=== PATIENT | female | born 1975 | race American Indian/Alaskan Native ===

== ENCOUNTER 2018-08-18 15:08 | Emergency (ER) | payer OTHER ==
[2018-08-18 16:10] LABS: Hematocrit 37.3 % (30.3-42.9); Hemoglobin 12.6 gm/dl (10.1-14.3); Mean Corpuscular HGB Conc 34 % (30-34); Mean Corpuscular Volume 87 fl (79-97); Platelet Count 167 K/mm3 (140-440); Red Blood Count 4.28 M/mm3 (3.65-5.03); Red Cell Distribution Width 14.4 % (13.2-15.2)
[2018-08-18 16:20] LABS: INR 0.91 (0.87-1.13)
--- NOTE | 2018-08-18 16:20 | Emergency Department Report ---
HPI - General Chief Complaint: Chest Pain Time Seen by Provider: 08/18/18 15:54 - HPI HPI: Room 1 The patient is a 42-year-old female presenting with chief complaint chest pain. Patient states today she developed substernal chest heaviness associated with shortness of breath. Patient denies nausea/vomiting or diaphoresis. Patient states she's never had a stress test or cardiac catheterization. Patient currently gets her chest heaviness a score of 0/10 Location: Chest Duration: One day Quality: Heaviness Severity: 0/10 Modifying factors: [see above] Context: [see above] Mode of transportation: [not driving] ED Past Medical Hx - Past Medical History Previous Medical History?: No - Surgical History Past Surgical History?: No - Family History Family history: no significant - Social History Smoking Status: Never Smoker Substance Use Type: None - Medications Home Medications: Home Medications Medication Instructions Recorded Confirmed Last Taken Type No Known Home Medications [No 08/18/18 08/18/18 Unknown History Reported Home Medications] ED Review of Systems ROS: Stated complaint: CHEST PAIN Other details as noted in HPI Constitutional: denies: diaphoresis Eyes: denies: eye pain ENT: denies: throat pain Respiratory: shortness of breath Cardiovascular: chest pain Endocrine: no symptoms reported Gastrointestinal: denies: nausea, vomiting Genitourinary: denies: dysuria Musculoskeletal: denies: back pain Skin: denies: lesions Neurological: denies: headache Physical Exam - Physical Exam Vital Signs: Vital Signs 08/18/18 15:36 Temperature 98.9 F Pulse Rate 84 Respiratory 16 Rate Blood Pressure 132/72 O2 Sat by Pulse 96 Oximetry Physical Exam: GENERAL: The patient is well-developed well-nourished female lying on stretcher not appearing to be in acute distress. [] HEENT: Normocephalic. Atraumatic. Extraocular motions are intact. Patient has moist mucous membranes. NECK: Supple. Trachea midline CHEST/LUNGS: Occasional end-expiratory wheeze. There is no respiratory distress noted. HEART/CARDIOVASCULAR: Regular. There is no tachycardia. There is no gallop rub or murmur. ABDOMEN: Abdomen is soft, nontender. Patient has normal bowel sounds. There is no abdominal distention. SKIN: There is no rash. There is no edema. There is no diaphoresis. NEURO: The patient is awake, alert, and oriented. The patient is cooperative. The patient has normal speech MUSCULOSKELETAL: There is no evidence of acute injury. ED Course Vital Signs 08/18/18 15:36 Temperature 98.9 F Pulse Rate 84 Respiratory 16 Rate Blood Pressure 132/72 O2 Sat by Pulse 96 Oximetry ED Medical Decision Making - Lab Data Result diagrams: 08/18/18 15:58 08/18/18 15:58 Laboratory Tests 08/18/18 08/18/18 08/18/18 15:58 15:58 15:58 WBC 7.1 RBC 4.28 Hgb 12.6 Hct 37.3 MCV 87 MCH 29 MCHC 34 RDW 14.4 Plt Count 167 Eos % (Auto) [employer] Internship PT 12.8 INR 0.91 Sodium 137 Potassium 3.5 L Chloride 100.8 Carbon Dioxide 26 Anion Gap 14 BUN 14 Creatinine 0.6 L Estimated GFR > 60 BUN/Creatinine Ratio 23 Glucose 86 Calcium 8.8 Total Creatine Kinase 309 H CK-MB (CK-2) 4.5 H CK-MB (CK-2) Rel Index 1.4 Troponin T < 0.010 NT-Pro-B Natriuret Pep 08/18/18 16:19 WBC RBC Hgb Hct MCV MCH MCHC RDW Plt Count Eos % (Auto) PT INR Sodium Potassium Chloride Carbon Dioxide Anion Gap BUN Creatinine Estimated GFR BUN/Creatinine Ratio Glucose Calcium Total Creatine Kinase CK-MB (CK-2) CK-MB (CK-2) Rel Index Troponin T NT-Pro-B Natriuret Pep 112.3 - EKG Data -: EKG Interpreted by Me EKG shows normal: sinus rhythm Rate: normal - EKG Data When compared to previous EKG there are: previous EKG unavailable Interpretation: nonspecific ST-T wave conner (flattened T-wave in lead aVL) - Radiology Data Radiology results: image reviewed (chest x-ray) interpreted by me: Chest x-ray-no focal infiltrates, no pneumothorax - Differential Diagnosis ACS, CHF, pericarditis, GERD Critical care attestation.: If time is entered above; I have spent that time in minutes in the direct care of this critically ill patient, excluding procedure time. ED Disposition Clinical Impression: Chest pain Disposition: DC-01 TO HOME OR SELFCARE Is pt being admited?: Yes Does the pt Need Aspirin: Yes Condition: Fair Instructions: Chest Pain (ED) Time of Disposition: 17:06 (hospitalist notified (Dr Skaggs))
[2018-08-18] MEDS ORDERED: ASPIRIN PO ONE (16:21)
[2018-08-18 16:26] LABS: Creatine Kinase MB 4.5 ng/mL (0.0-4.0)
[2018-08-18 16:28] LABS: BUN/Creatinine Ratio 23; Blood Urea Nitrogen 14 mg/dL (7-17); Calcium 8.8 mg/dL (8.4-10.2); Hemolysis Index 4
[2018-08-18] MEDS ORDERED: MORPHINE IV ONE (17:07)
[2018-08-18] MEDS ORDERED: NITRO-BID 2% TP ONE (17:07)
[2018-08-18] MEDS ORDERED: ZOFRAN IV ONE (17:07)
[2018-08-18 17:14] LABS: Basophils % (Manual) 0 % (0.0-1.8); Platelet Estimate Consistent w Auto; Total Cells Counted 100
[2018-08-18 17:15] LABS: Anisocytosis 1+; Ovalocytes Few
--- NOTE | 2018-08-18 17:51 | History and Physical Report ---
Medications and Allergies Allergies Allergy/AdvReac Type Severity Reaction Status Date / Time No Known Allergies Allergy Verified 08/18/18 15:36 Home Medications Medication Instructions Recorded Confirmed Last Taken Type No Known Home Medications [No 08/18/18 08/18/18 Unknown History Reported Home Medications] Exam - Constitutional Vitals: Temp Pulse Resp BP Pulse Ox 98.9 F 84 16 132/72 96 08/18/18 15:36 08/18/18 15:36 08/18/18 15:36 08/18/18 15:36 08/18/18 15:36 Results - Labs CBC & Chem 7: 08/18/18 15:58 08/18/18 15:58 Labs: Abnormal lab results 08/18/18 08/18/18 Range/Units 15:58 15:58 Eosinophils % (Manual) 15.0 H (0.0-4.3) % Eosinophils # (Manual) 1.1 H (0.0-0.4) K/mm3 Potassium 3.5 L (3.6-5.0) mmol/L Creatinine 0.6 L (0.7-1.2) mg/dL Total Creatine Kinase 309 H (30-135) units/L CK-MB (CK-2) 4.5 H (0.0-4.0) ng/mL
--- NOTE | 2018-08-18 18:25 | XRay Report ---
PROCEDURE: XR CHEST 1V AP TECHNIQUE: Portable AP view of the chest was obtained. HISTORY: chest pain COMPARISONS: FINDINGS: The heart is magnified due to projection, appears to be upper normal size to mildly enlarged.. Pulmon eric vasculature not significantly distended. No focal intrinsic masses or effusions are seen. No acut e bone abnormalities are identified. IMPRESSION: Heart size upper normal to mildly enlarged. No other abnormalities are seen.. This document is electronically signed by Ruiz Meier MD., August 18 2018 06:23:22 PM ET
[2018-08-18] MEDS ORDERED: PROTONIX PO ONE (19:08)
--- NOTE | 2018-08-18 20:38 | Event Note ---
Date: 08/18/18 42 YO Female with Obesity presents to ED for evaluation of difficulty breathing. Pt denies chest pain at time of exam and interview. Pt reports that she has difficulty breathing while at work. 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 Pt treated IAW chest pain protocol. Serial cardiac enzyme, ekg, telemetry are not indicative of acute ischemia. CTA chest was negative for PE. Pt medically optimized with normal oxygen saturation throughout hospital course. Pt discharged home and instructed to f/u pcp 1wk., Puylmonary prn. GENERAL: The patient is well-developed well-nourished female lying on stretcher not appearing to be in acute distress. [] HEENT: Normocephalic. Atraumatic. Extraocular motions are intact. Patient has moist mucous membranes. NECK: Supple. Trachea midline CHEST/LUNGS: CTA bilaterally. There is no respiratory distress noted. HEART/CARDIOVASCULAR: Regular. There is no tachycardia. There is no gallop rub or murmur. ABDOMEN: Abdomen is soft, nontender. Patient has normal bowel sounds. There is no abdominal distention. SKIN: There is no rash. There is no edema. There is no diaphoresis. NEURO: The patient is awake, alert, and oriented. The patient is cooperative. The patient has normal speech MUSCULOSKELETAL: There is no evidence of acute injury.
[2018-08-18 21:54] VITALS: BP 108/60
--- NOTE | 2018-08-18 22:00 | Cat Scan Report ---
PROCEDURE: CT angiogram chest with contrast. TECHNIQUE: Computerized tomographic angiography of the chest was performed after the IV injection of iodinated nonionic contrast including image processing. The image data was postprocessed using 2-di mensional multiplanar reformatted (MPR) and 3-dimensional (MIP and/or volume rendered) techniques. Au tomated exposure control, adjustment of mA and/or kV according to patient size, or iterative reconstr uction dose optimization techniques were utilized. CT DOSE LENGTH PRODUCT: Not provided mGycm HISTORY: Chest pain. COMPARISONS: None. FINDINGS: The trachea and central bronchi appear normal. The lungs are clear and well expanded. There are no pl eural effusions. The thoracic aorta has a normal caliber without evidence of dissection. The pulmonar y arteries enhance normally. There are no filling defects to indicate pulmonary embolism. There is no mediastinal adenopathy. The heart size is normal. The thoracic skeleton appears intact. IMPRESSION: No evidence of pulmonary embolism. This document is electronically signed by Federico Pereira MD., August 18 2018 09:58:48 PM ET
== END 2018-08-18 22:31 | disposition home or self-care (01) ==
LOC: ED 15:08
DX: R07.89 Other chest pain (principal); R06.02 Shortness of breath
CPT/HCPCS: 36415; 71045; 71275; 80048; 82550; 82553; 83880; 84484; 85007; 85025; 85379; 85610; 93005; 93010; 96374; 96375; 99284; J2270; J2405; Q9967

== ENCOUNTER 2018-11-04 13:35 | Emergency (ER) | payer OTHER ==
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
[2018-11-04 14:47] LABS: HCG Qualitative,Urine Negative (Negative)
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
[2018-11-04] MEDS ORDERED: IBUPROFEN PO ONE (17:55)
[2018-11-04 20:01] VITALS: BP 130/80
== END 2018-11-04 20:02 | disposition home or self-care (01) ==
LOC: ED 13:35
DX: M25.561 Pain in right knee (principal); M25.562 Pain in left knee; R51 Headache; Z98.890 Other specified postprocedural states; Z79.899 Other long term (current) drug therapy; V49.59XA Passenger injured in collision with other motor vehicles in traffic accident, initial encounter; Y93.89 Activity, other specified; Y92.410 Unspecified street and highway as the place of occurrence of the external cause; Y99.8 Other external cause status
CPT/HCPCS: 81025